=== PATIENT | female | born 1985 | race Hispanic/Latino ===

== ENCOUNTER 2018-08-16 13:05 | Emergency (ER) | payer OTHER ==
--- NOTE | 2018-08-16 14:01 | ED PDOC ---
Arrival/HPI - General Chief Complaint: Flu-like Symptoms Time Seen by Provider: 08/16/18 13:08 Historian: Patient - History of Present Illness Narrative History of Present Illness (Text): 08/16/18 13:43 33 year old female, with no significant past medical history, presents to the Emergency department complaining of fever since 3 days. Patient informs history of 103 F temperature at home since onset associated with generalized myalgia, arthalgia, mild non-productive cough and URI symptoms. Patient informs visiting an Urgent Care with the presented symptoms 3 days ago and was tested negative for the flu. Patient states taking prescribed ibuprofen with no improvement to symptoms prompting her to present to the ED for medical evaluation. Patient denies any other associated somatic complaints. Patient denies any headache, d izziness, chest pain, shortness of breath, dyspnea on exertion, abdominal pain, nausea, vomiting, diarrhea, back pain, neck pain, genitourinary symptoms or any other complaints. Patient denies smoking, drinking alcohol or any drug use. Time/Duration: < week Symptom Onset: Gradual Symptom Course: Unchanged Activities at Onset: Light Context: Home Past Medical History - Provider Review Nursing Documentation Reviewed: Yes - Pulmonary Hx Respiratory Disorders: Yes Hx Asthma: Yes - Psychiatric Hx Substance Use: No - Surgical History Other/Comment: L FA - Anesthesia Hx Anesthesia: Yes Hx Anesthesia Reactions: No Hx Malignant Hyperthermia: No Family/Social History - Physician Review Nursing Documentation Reviewed: Yes Family/Social History: Unknown Family HX Smoking Status: Never Smoked Hx Alcohol Use: No Hx Substance Use: No Allergies/Home Meds Allergies/Adverse Reactions: Allergies No Known Allergies Allergy (Verified 08/16/18 13:25) Review of Systems - Physician Review All systems were reviewed & negative as marked: Yes - Review of Systems Constitutional: Fevers Respiratory: Cough. absent: SOB Cardiovascular: absent: Chest Pain, WATERS Gastrointestinal: absent: Abdominal Pain, Diarrhea, Nausea, Vomiting Genitourinary Female: absent: Dysuria, Urine Output Changes Musculoskeletal: Arthralgias, Myalgias. absent: Back Pain, Neck Pain Neurological: absent: Headache, Dizziness Physical Exam Vital Signs Reviewed: Yes Vital Signs Temp Pulse Resp BP Pulse Ox 08/16/18 13:05 100 F H 116 H 18 147/92 H 97 Temperature: Afebrile Blood Pressure: Normal Pulse: Tachycardic Respiratory Rate: Normal Appearance: Positive for: Well-Appearing, Non-Toxic, Comfortable Pain Distress: None Mental Status: Positive for: Alert and Oriented X 3 - Systems Exam Head: Present: Atraumatic, Normocephalic Pupils: Present: PERRL Extroacular Muscles: Present: EOMI Conjunctiva: Present: Normal Mouth: Present: Moist Mucous Membranes Neck: Present: Normal Range of Motion Respiratory/Chest: Present: Clear to Auscultation, Good Air Exchange. No: Respiratory Distress, Accessory Muscle Use Cardiovascular: Present: Regular Rate and Rhythm, Normal S1, S2. No: Murmurs Abdomen: No: Tenderness, Distention, Peritoneal Signs Back: Present: Normal Inspection Upper Extremity: Present: Normal Inspection. No: Cyanosis, Edema Lower Extremity: Present: Normal Inspection. No: Edema Neurological: Present: GCS=15, CN II-XII Intact, Speech Normal Skin: Present: Warm, Dry, Normal Color. No: Rashes Psychiatric: Present: Alert, Oriented x 3, Normal Insight, Normal Concentration Medical Decision Making ED Course and Treatment: 08/16/18 14:04 Impression: 33 year old female presents to the Emergency department complaining of fever. Plan: -- Chest X-ray -- Tylenol -- Reassess and disposition Prior Visits: Notes and results from previous visits were reviewed. Progress Notes: 08/16/18 14:20 I believe that the patient's symptoms do represent the flu despite the negative influenza test. Her chest x-ray is normal. She is beyond the time that we would treat with Tamiflu. She will be treated symptomatically. 08/16/18 15:19 Zithromax prescription called into [facility] pharmacy for left lower lobe pneumonia. Discussed with the patient over the telephone. - RAD Interpretation Narrative RAD Interpretations (Text): 08/16/18 14:44 Chest X-ray reviewed by radiologist, shows: FINDINGS: LUNGS: Increased densities associated with air bronchograms at the left base though without silhouetting left hemidiaphragm. Still, pattern is seen posteriorly in the lateral view and left lower lobe infiltrate is suspected. Lingular infiltrate unlikely. Remaining lung perrin appear clear. PLEURA: No significant pleural effusion identified. No pneumothorax apparent. CARDIOVASCULAR: No aortic atherosclerotic calcification present. Normal cardiac size. No pulmonary vascular congestion. OSSEOUS STRUCTURES: No significant abnormalities. VISUALIZED UPPER ABDOMEN: Normal. OTHER FINDINGS: None. IMPRESSION: Mild left lower lobe infiltrate identified. The remainder of the examination appears unremarkable. Radiology Orders: 08/16/18 13:43 CHEST TWO VIEWS (PA/LAT) [RAD] Stat Chest 2 view shows no infiltrate effusion or cardiomegaly. Distribution Engineer: ED Physician, Radiologist - Medication Orders Current Medication Orders: Discontinued Medications Acetaminophen (Tylenol 325mg Tab) 975 mg PO STAT STA Stop: 08/16/18 13:44 - Scribe Statement The provider has reviewed the documentation as recorded by the Scribe Dennis Whitfield. All medical record entries made by the Scribe were at my direction and personally dictated by me. I have reviewed the chart and agree that the record accurately reflects my personal performance of the history, physical exam, medical decision making, and the department course for this patient. I have also personally directed, reviewed, and agree with the discharge instructions and disposition. Disposition/Present on Arrival - Present on Arrival Any Indicators Present on Arrival: No History of DVT/PE: No History of Uncontrolled Diabetes: No Urinary Catheter: No History of Decub. Ulcer: No History Surgical Site Infection Following: None - Disposition Have Diagnosis and Disposition been Completed?: Yes Diagnosis: Fever, Influenza Disposition: HOME/ ROUTINE Disposition Time: 14:20 Patient Plan: Discharge Patient Problems: Current Active Problems Problem Status Onset Fever Acute Influenza Acute Condition: GOOD Discharge Instructions (ExitCare): Flu, Flu, Adult (DC) Additional Instructions: Symptomatic treatment. Tylenol or Advil as directed on bottle as needed. Follow- up with PMD. Follow up in ER as needed. Prescriptions: Benzonatate [Tessalon Perles] 100 mg PO Q8 #30 sgl Forms: [facility] (Chinese), WORK NOTE
--- NOTE | 2018-08-16 14:40 | RAD ---
Date of service: 08/16/2018 HISTORY: cough COMPARISON: No prior. TECHNIQUE: Chest PA and lateral FINDINGS: LUNGS: Increased densities associated with air bronchograms at the left base though without silhouetting left hemidiaphragm. Still, pattern is seen posteriorly in the lateral view and left lower lobe infiltrate is suspected. Lingular infiltrate unlikely. Remaining lung perrin appear clear. PLEURA: No significant pleural effusion identified. No pneumothorax apparent. CARDIOVASCULAR: No aortic atherosclerotic calcification present. Normal cardiac size. No pulmonary vascular congestion. OSSEOUS STRUCTURES: No significant abnormalities. VISUALIZED UPPER ABDOMEN: Normal. OTHER FINDINGS: None. IMPRESSION: Mild left lower lobe infiltrate identified. The remainder of the examination appears unremarkable.
[2018-08-16 14:59] VITALS: BP 126/79; PULSE 94; RESP 16; TEMP 98.6; O2SAT 98
== END 2018-08-16 14:20 | disposition home or self-care (01) ==
LOC: MERGE 13:05 → ED 13:05
DX: J11.1 Influenza due to unidentified influenza virus with other respiratory manifestations (principal)